=== PATIENT | male | born 1955 | race Caucasian/White ===

== ENCOUNTER 2017-01-30 12:37 | Emergency (ER) | payer BC ==
[2017-01-30 13:40] LABS: BASO # 0.1 x10^3/uL (0.0-0.2); BASO % 1 % (0-3); EOS % 0 % (0-3); HEMATOCRIT 46.6 % (39.0-53.0); HEMOGLOBIN 15.9 g/dL (13.0-17.5); LYMPH # 0.9 x10^3/uL (1.0-4.8); LYMPH % 11 % (24-48); MEAN CORPUSCULAR HEMOGLOBIN 32 pg (25-35); MEAN CORPUSCULAR HGB CONC 34 g/dL (31-37); MEAN CORPUSCULAR VOLUME 95 fL (79-100); MONO # 0.8 x10^3/uL (0.0-1.1); MONO % 9 % (0-9); NEUT # 6.5 x10^3uL (1.8-7.7); NEUT % 79 % (31-73); PLATELET COUNT 176 x10^3/uL (140-400); RED BLOOD COUNT 4.92 x10^6/uL (4.30-5.70); RED CELL DISTRIBUTION WIDTH 13.2 % (11.5-14.5); WHITE BLOOD COUNT 8.2 x10^3/uL (4.0-11.0)
[2017-01-30] MEDS ORDERED: IV NORMAL SALINE 1,000ML 1,000 ML IV ONE (13:45)
--- NOTE | 2017-01-30 13:45 | EKG ---
[address] [address] Test Date: 2017-01-30 Test Time: 13:37:40 Pat Name: WILLIAMS PARKER Department: Room: Gender: M [employer]ing [employer] Tender: : 1955 Requested By: GINO CONWAY Order Number: [id number] Reading MD: Alin Millan Measurements Intervals [place] Rate: 116 P: 37 DE: 160 QRS: -42 QRSD: 96 T: 52 QT: 328 QTc: 456 Interpretive Statements SINUS TACHYCARDIA ABNORMAL LEFT AXIS DEVIATION LEFT ANTERIOR FASCICULAR BLOCK Electronically Signed On 02-02-2017 10:13:05 CDT by Alin Millan
[2017-01-30 13:53] LABS: ALBUMIN 3.4 g/dL (3.4-5.0); CALCIUM 8.8 mg/dL (8.5-10.1); CREATININE 1.3 mg/dL (0.7-1.3); GFR 55.9; POTASSIUM 4.1 mmol/L (3.5-5.1); TOTAL BILIRUBIN 0.8 mg/dL (0.2-1.0); TOTAL PROTEIN 6.8 g/dL (6.4-8.2)
--- NOTE | 2017-01-30 14:44 | RAD ---
CT head without contrast History: Seizures. Comparison: 10/01/2009. Procedure: Axial images are obtained of the head from the skull base through the vertex without IV contrast. Findings: Mild bilateral periventricular white matter hypodensities likely chronic small vessel ischemic disease The ventricles and sulci are normal for the patient's age. No mass-effect, intracranial mass, midline shift, hemorrhage or obvious acute infarction is identified. Basilar cisterns are patent. Bone windows demonstrate no significant calvarial abnormality. The visualized paranasal sinuses appear clear. Impression: 1. No acute intracranial process. PQRS Compliance Statement: One or more of the following individualized dose reduction techniques were utilized for this examination: 1. Automated exposure control 2. Adjustment of the mA and/or kV according to patient size 3. Use of iterative reconstruction technique
[2017-01-30 15:24] LABS: AMPHETAMINE/METHAMPHETAMINE NEG (NEG); BARBITURATES NEG (NEG); BENZODIAZEPINES NEG (NEG); CANNABINOIDS NEG (NEG); COCAINE NEG (NEG); METHADONE NEG (NEG); OPIATES NEG (NEG); PHENCYCLIDINE NEG (NEG)
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
[2017-01-30 15:36] VITALS: BP 150/82
== END 2017-01-30 15:45 | disposition home or self-care (01) ==
LOC: ER 12:37
DX: R56.9 Unspecified convulsions (principal); R41.0 Disorientation, unspecified
CPT/HCPCS: 36415; 70450; 80053; 80307; 85025; 93005; 96360; 99285-25; G0479; J7030

== ENCOUNTER → 2017-02-08 | Outpatient (CLI) | payer BC ==
[2017-01-30 15:36] VITALS: BP 150/82
--- NOTE | 2017-02-08 09:31 | RAD ---
Indication pain. Internally, externally, and AP views of the right shoulder were obtained as well as an axillary view and a Y-view. There is a well-corticated bone fragment associated with the distal aspect of the clavicle having a chronic appearance. There is some narrowing between the acromion and the humeral head suggesting a rotator cuff tear. If clinically warranted additional evaluation could be obtained with MRI. There are suggested mild degenerative changes at the glenohumeral joint. An acute bony finding is not seen. IMPRESSION: Chronic changes. No acute finding seen
== END | disposition home or self-care (01) ==
LOC: DXRAD 08:34
PROVIDERS: ATTEND Orthopaedic Surgery
DX: M25.511 Pain in right shoulder (principal)
CPT/HCPCS: 73030